=== PATIENT | male | born 1990 | race Caucasian/White ===

== ENCOUNTER 2018-05-03 11:51 | Emergency (ER) | payer MEDICAID, OTHER ==
[~2018-05-03] VITALS: Ht 188 cm; Wt 62.0 kg
[~2018-05-03 11:51] MED LIST: ALBU8.5H8 IH; HYDR-4383 PO; MONT10TA21 PO; OMEP20TA23 PO; ONDA4TAB6 PO; ONDA8TAB9 PO; POLY119P2 PO
[2018-05-03 11:59] VITALS: BP 119/57
[2018-05-03] MEDS ORDERED: AMOX500C2 PO (12:43)
--- NOTE | 2018-05-03 12:56 | NUR ---
PATIENT HAS MILD DENTAL PAIN AND EAR PAIN. PATIENT VERBALIZED DISCHARGE PLAN. PATIENT WILL TAKE AND FINISH ANTIBIOTIC PRESCRIBED. PATIENT VERBALIZED SIDE EFFECTS. PATIENT WILL MAKE APPOINTMENT AT [facility]. PATIENT AMBULATED OUT OF ER WNL WITH FRIEND AT SIDE WHO ISDRIVING
== END 2018-05-03 12:59 | disposition home or self-care (01) ==
LOC: ER 11:51
DX: K02.9 Dental caries, unspecified (principal); H66.91 Otitis media, unspecified, right ear; F17.200 Nicotine dependence, unspecified, uncomplicated; F12.90 Cannabis use, unspecified, uncomplicated; Z91.040 Latex allergy status; Z79.899 Other long term (current) drug therapy
CPT/HCPCS: 99283

== ENCOUNTER 2018-08-23 12:52 | Emergency (ER) | payer MEDICAID, OTHER ==
[~2018-08-23] VITALS: Ht 188 cm; Wt 63.6 kg
[2018-08-23 13:05] VITALS: BP 114/69
[2018-08-23] MEDS ORDERED: LIDOcaine 1% w/epiNEPHrine 1:200,000 30ml vial IM ONE (13:45)
[2018-08-23] MEDS ORDERED: SULF1TAB49 PO (14:22)
== END 2018-08-23 14:36 | disposition home or self-care (01) ==
LOC: ER 12:52
DX: L72.3 Sebaceous cyst (principal); F12.90 Cannabis use, unspecified, uncomplicated; Z91.040 Latex allergy status; Z79.899 Other long term (current) drug therapy
CPT/HCPCS: 10060; 87070; 99283; J3490

== ENCOUNTER 2020-01-03 12:34 | Emergency (ER) | payer OTHER ==
[~2020-01-03] VITALS: Ht 188 cm; Wt 63.6 kg
[2020-01-03 12:38] VITALS: BP 123/62
[2020-01-03] MEDS ORDERED: ACET-812 PO (13:02)
[2020-01-03] MEDS ORDERED: PENI500T2 PO (13:02)
[2020-01-03] MEDS ORDERED: IBUP-1985 PO (13:02)
[2020-01-03] MEDS ORDERED: acetaminophen 325mg tablet PO ONE (13:05)
[2020-01-03] MEDS ORDERED: ibuprofen tablet 400 MG TABLET PO ONE (13:05)
== END 2020-01-03 13:15 | disposition home or self-care (01) ==
LOC: ER 12:34
DX: K08.89 Other specified disorders of teeth and supporting structures (principal); F12.90 Cannabis use, unspecified, uncomplicated; F17.200 Nicotine dependence, unspecified, uncomplicated; Z91.040 Latex allergy status; Z79.899 Other long term (current) drug therapy
CPT/HCPCS: 99283

== ENCOUNTER 2020-05-25 22:06 | Emergency (ER) | payer MEDICAID ==
[~2020-05-25] VITALS: Ht 185.4 cm; Wt 63.6 kg
[~2020-05-25 22:06] MED LIST changes: +ACET-812 PO; +IBUP-1985 PO
[2020-05-25 22:21] VITALS: BP 119/80
--- NOTE | 2020-05-25 22:31 | NUR ---
last seen by [facility]is[facility] 9 years ago
[2020-05-25] MEDS ORDERED: PENI500T2 PO (22:40)
== END 2020-05-25 22:50 | disposition home or self-care (01) ==
LOC: ER 22:06
DX: K04.7 Periapical abscess without sinus (principal); K08.89 Other specified disorders of teeth and supporting structures; F12.90 Cannabis use, unspecified, uncomplicated; Z91.040 Latex allergy status; Z79.899 Other long term (current) drug therapy
CPT/HCPCS: 99283

== ENCOUNTER 2021-04-24 17:38 | Inpatient (IN) | payer MEDICAID ==
[~2021-04-24] VITALS: Ht 188 cm; Wt 60.5 kg
[~2021-04-24 17:38] MED LIST changes: +ALBU8.5H17 IH; -ALBU8.5H8 IH
[2021-04-24] MEDS ORDERED: LIDOcaine 1% W/epiNEPHrine 1:100,000 20ml vial SQ ONE (18:40)
--- NOTE | 2021-04-24 19:18 | NUR ---
thoravent placed by dr fair. pt has no complaints. new cxr has been ordered to confirm correct placement.
--- NOTE | 2021-04-24 19:56 | NUR ---
recieved VERBAL ORDER FROM DR SHIRLEY TO CONNECT PT'S THORAVENT TO DIRECT SUCTION AT 10 CONTINUOUS. SEAL SURROUNDING THORAVENT HAS BEEN RE-SECURED WITH FOAM TAPE. DR SHIRLEY REPEATED VERBAL ORDER FOR ACCURACY.
[2021-04-24] MEDS ORDERED: temazepam 15mg capsule PO PRN (21:00)
--- NOTE | 2021-04-24 21:08 | NUR ---
DR SHIRLEY WAS RE-EVALUATED SUCTION SETUP UPON MY REQUEST. HE STATED IT IS CORRECT.
[2021-04-24] MEDS ORDERED: magnesium Cl slow-release 64mg tablet PO PRN (23:15)
[2021-04-24] MEDS ORDERED: mag hydrox/Alum hydrox/simeth 30ml oral suspension PO PRN ×2 (23:15→23:20)
[2021-04-24] MEDS ORDERED: magnesium hydroxide 30ml (MOM) UD suspension PO PRN ×2 (23:15→23:20)
[2021-04-24] MEDS ORDERED: potassium Cl 20 mEq SR tablet PO PRN ×2 (23:15)
[2021-04-24] MEDS ORDERED: potassium CL 10mEq/100ml bag 100 ML IV PRN (23:15)
[2021-04-24] MEDS ORDERED: ondansetron/PF 4mg/2ml inj IV PRN ×2 (23:15→23:20)
[2021-04-24] MEDS ORDERED: acetaminophen 325mg tablet PO PRN ×3 (23:15→23:20)
[2021-04-24] MEDS ORDERED: magnesium 4gm in 100ml NS 100 ML IV PRN (23:15)
[2021-04-24] MEDS ORDERED: magnesium 2GM in 50ml NS 50 ML IV PRN (23:15)
[2021-04-24] MEDS ORDERED: acetaminophen 650mg rectal suppository RC PRN (23:20)
[2021-04-24] MEDS ORDERED: bisacodyl 10mg suppository rectal RC PRN (23:20)
[2021-04-24] MEDS ORDERED: HYDROcodone/acetaminophen 10/325mg tab PO PRN (23:20)
[2021-04-24] MEDS ORDERED: diphenhydrAMINE 25mg capsule PO PRN (23:20)
[2021-04-24] MEDS ORDERED: HYDROcodone/acetaminophen 5mg/325mg tablet PO PRN (23:20)
[2021-04-24] MEDS ORDERED: morphine 2 MG/ML inj. syringe IV PRN ×2 (23:20)
[2021-04-24] MEDS ORDERED: diphenhydrAMINE 50 mg/ml inj IV PRN (23:20)
[2021-04-24] MEDS ORDERED: ondansetron 4mg rapidly disintigrating tab PO PRN (23:20)
[2021-04-24] MEDS ORDERED: ipratropium/albuterol 3ml nebule NEB PRN (23:20)
[2021-04-24 23:59] LABS: APTT 28 SECONDS (22-32); D-DIMER 1.46 MG/L FEU (0-0.50)
[2021-04-25] VITALS (7 sets, daily range): BP systolic 94–124; BP diastolic 61–77
[2021-04-25 00:03] LABS: HEMOGLOBIN A1C 5.6 % (4.5-6.2)
[2021-04-25 00:12] LABS: CREATINE KINASE 162 U/L (39-308); LIPASE 111 U/L (73-393); MAGNESIUM 1.9 MG/DL (1.5-2.4); PHOSPHORUS 3.4 MG/DL (2.3-4.5); POTASSIUM 3.5 MMOL/L (3.5-5.1)
--- NOTE | 2021-04-25 01:00 | NUR ---
Patient transfer from ER to PCU in a stable condition, vitals signs stable oriented to room, bed in lower position call light within reach will continue to monitor and report changes
[2021-04-25] MEDS: dextrose 5%-1/2 normal saline 1,000 ML IV SCH ×3 (01:53→19:51)
--- NOTE | 2021-04-25 06:30 | NUR ---
Patient in room PCU 3027. I have received report from Shonda MILLER and had the opportunity to ask questions and assume patient care.
--- NOTE | 2021-04-25 06:31 | NUR ---
Problems reprioritized. Patient report given, questions answered & plan of care reviewed with Helen Mari .
[2021-04-25] MEDS: pantoprazole 40mg Tablet.DR PO SCH (07:30)
[2021-04-25 07:37] LABS: BASOPHILS # (AUTO) 0.1 X10'3 (0-0.2); BASOPHILS % (AUTO) 0.9 % (0-1); EOSINOPHILS # (AUTO) 0.3 X10'3 (0-0.9); EOSINOPHILS % (AUTO) 3.7 % (0-6); HEMATOCRIT 40.1 % (42.0-52.0); HEMOGLOBIN 13.5 g/dl (14.0-17.9); LYMPHOCYTES % (AUTO) 22.4 % (21-51); MEAN CORPUSCULAR HEMOGLOBIN 32.1 PG (27.0-31.0); MEAN CORPUSCULAR HGB CONC 33.7 g/dL (33.0-36.5); MEAN CORPUSCULAR VOLUME 95.1 FL (78-98); MEAN PLATELET VOLUME 7.2 FL (7.4-10.4); MONOCYTES # (AUTO) 0.6 X10'3 (0-0.9); MONOCYTES % (AUTO) 6.1 % (2-12); NEUTROPHILS % (AUTO) 66.9 % (42-75); PLATELET COUNT 254 X10'3 (140-440); RED BLOOD COUNT 4.22 X10'6 (4.70-6.10); RED CELL DISTRIBUTION WIDTH 12.9 % (11.5-14.5)
[2021-04-25 08:00] LABS: ALANINE AMINOTRANSFERASE 17 U/L (12-78); ALBUMIN 3.3 G/DL (3.4-5.0); ALBUMIN/GLOBULIN RATIO 1.1 (1.1-1.5); ALKALINE PHOSPHATASE 83 IU/L (46-116); ANION GAP 8 (8-16); ASPARTATE AMINO TRANSFERASE 14 U/L (10-37); BILIRUBIN,TOTAL 0.6 MG/DL (0.1-1.0); BLOOD UREA NITROGEN 9 MG/DL (7-18); BUN/CREATININE RATIO 10.1 (5.4-32.0); CALCIUM 8.2 MG/DL (8.5-10.1); CHLORIDE 109 MMOL/L (99-107); CHOL/HDL RATIO 3.7 (0.00-4.99); CHOLESTEROL 122 MG/DL (0-200); CREATININE 0.89 MG/DL (0.60-1.10); GLUCOSE 100 MG/DL (70-104); HDL CHOLESTEROL 33 MG/DL (35-60); LDL CHOLESTEROL 69 MG/DL (50-100); POTASSIUM 4.3 MMOL/L (3.5-5.1); SODIUM 143 MMOL/L (135-145); TOTAL CARBON DIOXIDE 26.2 MMOL/L (24-32); TOTAL PROTEIN 6.4 G/DL (6.4-8.2); TRIGLYCERIDES 51 MG/DL (20-135); eGFR > 90 ML/MIN
[2021-04-25] MEDS ORDERED: docusate sod 100mg capsule PO SCH (08:00)
[2021-04-25] MEDS: docusate sod 100mg capsule PO SCH ×2 (08:00→19:56)
[2021-04-25] MEDS: K and/or MAG REPLACEMENT MC SCH ×2 (08:00→20:00)
[2021-04-25] MEDS ORDERED: ERGO500054 PO (08:46)
[2021-04-25] MEDS: methylPREDNISolone sod succ 125mg/2ml vial IV SCH ×2 (09:21→19:52)
[2021-04-25] MEDS: DOXYCYCLINE 100MG CAPSULE PO SCH ×2 (09:21→19:53)
--- NOTE | 2021-04-25 12:32 | NUR ---
Noted pt with a low BMI of 17.1 using bed scaled wt of 60.5 kg though current wt is stable with scaled wt hx in EMR, documented with range of 60.5-62.2 kg from 5290-0790. Per malnutrition risk screen with RN pt denied wt loss or decreased appetite. Pending documentation of PO intake on regular diet. Pt appears to be UBW. Will continue to follow. Addendum: 04/25/21 at [address] Amended: Links added.
--- NOTE | 2021-04-25 14:29 | NUR ---
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 He would like to talk to you. [phone]
--- NOTE | 2021-04-25 18:00 | NUR ---
SHIFT CHANGE REPORT FROM JUANITO MILLER
--- NOTE | 2021-04-25 18:34 | NUR ---
Problems reprioritized. Patient report given, questions answered & plan of care reviewed with Cary MILLER.
[2021-04-26 02:00] VITALS: BP 108/54
[2021-04-26] MEDS: dextrose 5%-1/2 normal saline 1,000 ML IV SCH (04:44)
[2021-04-26 06:00] VITALS: BP 109/47
--- NOTE | 2021-04-26 06:19 | NUR ---
SHIFT REPORT GIVEN TO MADELINE MILLER
[2021-04-26] MEDS: K and/or MAG REPLACEMENT MC SCH ×2 (08:00→19:29)
[2021-04-26] MEDS: DOXYCYCLINE 100MG CAPSULE PO SCH ×2 (08:17→19:26)
[2021-04-26] MEDS: pantoprazole 40mg Tablet.DR PO SCH (08:17)
[2021-04-26] MEDS: methylPREDNISolone sod succ 125mg/2ml vial IV SCH (08:17)
[2021-04-26] MEDS: docusate sod 100mg capsule PO SCH ×2 (08:18→19:26)
[2021-04-26 08:54] LABS: BASOPHILS % (AUTO) 0 % (0-1); EOSINOPHILS % (AUTO) 0.1 % (0-6); HEMATOCRIT 41.2 % (42.0-52.0); HEMOGLOBIN 13.8 g/dl (14.0-17.9); LYMPHOCYTES # (AUTO) 1.4 X10'3 (1.1-4.8); LYMPHOCYTES % (AUTO) 8.5 % (21-51); MEAN CORPUSCULAR HEMOGLOBIN 31.8 PG (27.0-31.0); MEAN CORPUSCULAR HGB CONC 33.6 g/dL (33.0-36.5); MEAN CORPUSCULAR VOLUME 94.7 FL (78-98); MEAN PLATELET VOLUME 7.9 FL (7.4-10.4); MONOCYTES # (AUTO) 0.5 X10'3 (0-0.9); MONOCYTES % (AUTO) 3.3 % (2-12); NEUTROPHILS # (AUTO) 14.4 X10'3 (1.8-7.7); NEUTROPHILS % (AUTO) 88.1 % (42-75); PLATELET COUNT 265 X10'3 (140-440); RED BLOOD COUNT 4.35 X10'6 (4.70-6.10); RED CELL DISTRIBUTION WIDTH 12.9 % (11.5-14.5); WHITE BLOOD COUNT 16.4 X10'3 (4.5-11.0)
[2021-04-26 10:59] LABS: ALANINE AMINOTRANSFERASE 14 U/L (12-78); ALBUMIN 3.4 G/DL (3.4-5.0); ALKALINE PHOSPHATASE 85 IU/L (46-116); ANION GAP 13 (8-16); ASPARTATE AMINO TRANSFERASE 12 U/L (10-37); BILIRUBIN,TOTAL 0.5 MG/DL (0.1-1.0); BLOOD UREA NITROGEN 10 MG/DL (7-18); BUN/CREATININE RATIO 11.2 (5.4-32.0); CHLORIDE 106 MMOL/L (99-107); CREATININE 0.89 MG/DL (0.60-1.10); GLUCOSE 139 MG/DL (70-104); MAGNESIUM 1.9 MG/DL (1.5-2.4); POTASSIUM 4.5 MMOL/L (3.5-5.1); SODIUM 143 MMOL/L (135-145); TOTAL CARBON DIOXIDE 23.9 MMOL/L (24-32); TOTAL PROTEIN 6.7 G/DL (6.4-8.2); eGFR > 90 ML/MIN
[2021-04-26 11:00] VITALS: BP 131/60
[2021-04-26 15:00] VITALS: BP 117/62
--- NOTE | 2021-04-26 17:30 | NUR ---
Mr Clemente has been assessed as indicated. He continues to deny pain. He has been noted to be both pleasant and cooperative. He has had a CXR. has reviewed results. He will not be discharged today. The dressing to his Thoravent has been reinforced. he ambulates about the unit and his room independently. He has no s/s of distress or discomfort and he will continue to be monitored
[2021-04-26 18:00] VITALS: BP 112/55
--- NOTE | 2021-04-26 18:00 | NUR ---
Patient in room PCU 3027. I have received report from ISABEL MILLER and had the opportunity to ask questions and assume patient care.
--- NOTE | 2021-04-26 18:22 | NUR ---
Problems reprioritized. Patient report given, questions answered & plan of care reviewed with ELENA MILLER.
[2021-04-26 22:00] VITALS: BP 102/51
[2021-04-27 02:00] VITALS: BP 98/55
--- NOTE | 2021-04-27 06:08 | NUR ---
Problems reprioritized. Patient report given, questions answered & plan of care reviewed with JACEY MILLER.
[2021-04-27 06:44] LABS: ALANINE AMINOTRANSFERASE 15 U/L (12-78); ALBUMIN 3.2 G/DL (3.4-5.0); ALBUMIN/GLOBULIN RATIO 1.1 (1.1-1.5); ALKALINE PHOSPHATASE 72 IU/L (46-116); ANION GAP 7 (8-16); ASPARTATE AMINO TRANSFERASE 6 U/L (10-37); BILIRUBIN,TOTAL 0.5 MG/DL (0.1-1.0); BLOOD UREA NITROGEN 16 MG/DL (7-18); BUN/CREATININE RATIO 16.5 (5.4-32.0); CALCIUM 9.1 MG/DL (8.5-10.1); CHLORIDE 109 MMOL/L (99-107); CREATININE 0.97 MG/DL (0.60-1.10); GLUCOSE 93 MG/DL (70-104); MAGNESIUM 2.1 MG/DL (1.5-2.4); POTASSIUM 4.6 MMOL/L (3.5-5.1); SODIUM 145 MMOL/L (135-145); TOTAL CARBON DIOXIDE 29.1 MMOL/L (24-32); TOTAL PROTEIN 6.2 G/DL (6.4-8.2); eGFR > 90 ML/MIN
[2021-04-27 06:46] LABS: BASOPHILS % (AUTO) 0.1 % (0-1); EOSINOPHILS % (AUTO) 0.1 % (0-6); HEMATOCRIT 37.2 % (42.0-52.0); HEMOGLOBIN 12.6 g/dl (14.0-17.9); LYMPHOCYTES # (AUTO) 2.8 X10'3 (1.1-4.8); LYMPHOCYTES % (AUTO) 17.8 % (21-51); MEAN CORPUSCULAR HEMOGLOBIN 31.7 PG (27.0-31.0); MEAN CORPUSCULAR HGB CONC 33.8 g/dL (33.0-36.5); MEAN CORPUSCULAR VOLUME 93.8 FL (78-98); MEAN PLATELET VOLUME 7.4 FL (7.4-10.4); MONOCYTES # (AUTO) 0.9 X10'3 (0-0.9); MONOCYTES % (AUTO) 5.5 % (2-12); NEUTROPHILS # (AUTO) 11.8 X10'3 (1.8-7.7); NEUTROPHILS % (AUTO) 76.5 % (42-75); PLATELET COUNT 233 X10'3 (140-440); RED BLOOD COUNT 3.96 X10'6 (4.70-6.10); WHITE BLOOD COUNT 15.4 X10'3 (4.5-11.0)
[2021-04-27 07:00] VITALS: BP 98/60
[2021-04-27] MEDS: K and/or MAG REPLACEMENT MC SCH (08:00)
[2021-04-27] MEDS: docusate sod 100mg capsule PO SCH (08:14)
[2021-04-27] MEDS: pantoprazole 40mg Tablet.DR PO SCH (08:14)
[2021-04-27] MEDS: DOXYCYCLINE 100MG CAPSULE PO SCH (08:14)
[2021-04-27] MEDS ORDERED: predniSONE 20 mg tablet PO SCH (08:30)
[2021-04-27 11:00] VITALS: BP 121/65
[2021-04-27] MEDS ORDERED: PRED20TA PO (11:59)
[2021-04-27] MEDS ORDERED: DOXY100C2 PO (11:59)
--- NOTE | 2021-04-27 15:22 | NUR ---
Patient cxr read by doctor and discharged with follow up instructions. Patient stable and discharged by Mara Monroe
== END 2021-04-27 15:22 | disposition home or self-care (01) | DRG 143 ==
LOC: ER 17:38 → UNDOADMIN 21:30 → ED HOLD 21:30 → PCU 3S 04-25 00:55
PROVIDERS: ADMIT Family Medicine; ATTEND Internal Medicine
PROC: 0W9930Z Drainage of Right Pleural Cavity with Drainage Device, Percutaneous Approach (ICD-10-PCS; principal; 2021-04-24)
DX: J93.83 Other pneumothorax (principal); E46 Unspecified protein-calorie malnutrition; J44.1 Chronic obstructive pulmonary disease with (acute) exacerbation; Z20.822 Contact with and (suspected) exposure to COVID-19; J98.19 Other pulmonary collapse; F12.10 Cannabis abuse, uncomplicated; Z72.0 Tobacco use; Z68.1 Body mass index [BMI] 19.9 or less, adult; Z91.040 Latex allergy status; Z82.49 Family history of ischemic heart disease and other diseases of the circulatory system; Z79.899 Other long term (current) drug therapy
CPT/HCPCS: 36415; 71045; 71046; 80053; 80061; 82550; 83036; 83605; 83690; 83735; 83880; 84100; 84132; 84443; 85025; 85379; 85610; 85730; 87040; 87081; 87635; 94760; 99285; C9803; G0378; J2930; J7042; J7512

== ENCOUNTER 2023-08-06 11:02 | Emergency (ER) | payer MEDICAID ==
[~2023-08-06] VITALS: Ht 188 cm; Wt 65.0 kg
[~2023-08-06 11:02] MED LIST changes: -ACET-812 PO; -ALBU8.5H17 IH; +ERGO500054 PO; -HYDR-4383 PO; -IBUP-1985 PO; -MONT10TA21 PO; -OMEP20TA23 PO; -ONDA4TAB6 PO; -ONDA8TAB9 PO; -POLY119P2 PO
[2023-08-06] MEDS ORDERED: ibuprofen tablet 400 MG TABLET PO ONE (12:10)
[2023-08-06 12:27] LABS: BASOPHILS # (AUTO) 0.1 X10'3 (0-0.2); BASOPHILS % (AUTO) 0.9 % (0-1); EOSINOPHILS # (AUTO) 0.2 X10'3 (0-0.9); EOSINOPHILS % (AUTO) 2.1 % (0-6); HEMATOCRIT 49.6 % (42.0-52.0); HEMOGLOBIN 16.8 g/dl (14.0-17.9); LYMPHOCYTES # (AUTO) 1.1 X10'3 (1.1-4.8); LYMPHOCYTES % (AUTO) 15.3 % (21-51); MEAN CORPUSCULAR HEMOGLOBIN 32.2 PG (27.0-31.0); MEAN CORPUSCULAR HGB CONC 33.9 g/dL (33.0-36.5); MEAN PLATELET VOLUME 7.1 FL (7.4-10.4); MONOCYTES # (AUTO) 0.7 X10'3 (0-0.9); MONOCYTES % (AUTO) 9.2 % (2-12); NEUTROPHILS # (AUTO) 5.4 X10'3 (1.8-7.7); NEUTROPHILS % (AUTO) 72.5 % (42-75); PLATELET COUNT 201 X10'3 (140-440); RED BLOOD COUNT 5.22 X10'6 (4.70-6.10); RED CELL DISTRIBUTION WIDTH 13.1 % (11.5-14.5); WHITE BLOOD COUNT 7.4 X10'3 (4.5-11.0)
[2023-08-06] MEDS: ibuprofen 200mg tablet PO ONE (12:28)
[2023-08-06] MEDS: ondansetron 4mg rapidly disintigrating tab PO ONE (12:28)
[2023-08-06 12:39] LABS: ALBUMIN 3.7 G/DL (3.4-5.0); ANION GAP 13 (8-16); BILIRUBIN,TOTAL 0.6 MG/DL (0.1-1.0); BLOOD UREA NITROGEN 15 MG/DL (7-18); BUN/CREATININE RATIO 13.2 (10.0-20.0); CALCIUM 9.2 MG/DL (8.5-10.1); CHLORIDE 100 MMOL/L (99-107); CREATININE 1.14 MG/DL (0.60-1.10); GLUCOSE 90 MG/DL (70-104); POTASSIUM 3.7 MMOL/L (3.5-5.1); SODIUM 134 MMOL/L (135-145); TOTAL CARBON DIOXIDE 20.6 MMOL/L (24-32); TOTAL PROTEIN 8.2 G/DL (6.4-8.2); eCRCL 87 ML/MIN; eGFR 75 ML/MIN
[2023-08-06 12:40] LABS: ALANINE AMINOTRANSFERASE 18 U/L (12-78); ALBUMIN/GLOBULIN RATIO 0.8 (1.1-1.5); ALKALINE PHOSPHATASE 69 IU/L (46-116); ASPARTATE AMINO TRANSFERASE 19 U/L (10-37); LIPASE 52 U/L (16-77)
[2023-08-06] MEDS ORDERED: IBUP-1985 PO (13:07)
[2023-08-06] MEDS ORDERED: AZIT250T83 PO (13:07)
[2023-08-06] MEDS ORDERED: ALBU8HFA INH (13:08)
[2023-08-06] MEDS ORDERED: ONDA8TAB13 PO (13:08)
[2023-08-06] MEDS: CefTRIAXone 1000mg IM Kit (w/lidocaine diluent) IM ONE (13:19)
[2023-08-06 13:28] VITALS: BP 111/73; PULSE 59; RESP 18; TEMP 99; O2SAT 97
== END 2023-08-06 13:31 | disposition home or self-care (01) ==
LOC: ER 11:03
DX: J18.9 Pneumonia, unspecified organism (principal); R05.9 Cough, unspecified; F12.90 Cannabis use, unspecified, uncomplicated; Z91.040 Latex allergy status; Z79.899 Other long term (current) drug therapy
CPT/HCPCS: 36415; 71045; 80053; 83690; 85025; 87502; 87503; 96372; 99284; J0696